=== PATIENT | female | born 1955 ===

== ENCOUNTER 2019-08-28 14:58 | Emergency (ER) | payer OTHER, MEDICARE ==
[2019-08-28] MEDS ORDERED: Sodium Chloride 0.9% 1,000 ML IV ONE (15:04)
[2019-08-28] MEDS ORDERED: Ondansetron 4 MG/2 ML SDV IVPUSH ONE (15:04)
[2019-08-28] MEDS ORDERED: Morphine 4 MG/ML Syringe IVPUSH ONE (15:04)
--- NOTE | 2019-08-28 15:10 | EDM.PDOC ---
ED HPI GENERAL MEDICAL PROBLEM - General Chief Complaint: Trauma Stated Complaint: AMB Time Seen by Provider: 08/28/19 14:59 Source of Information: Reports: Patient History Limitations: Reports: No Limitations - History of Present Illness INITIAL COMMENTS - FREE TEXT/NARRATIVE: HISTORY AND PHYSICAL: Trauma alert was called prior to [employer] due to patient taking aspirin daily and falling from a standing height. Dr. Birmingham was directly involved in this case History of present illness: Patient is a 63-year-old female who presents to the emergency room with complaints of right shoulder pain post fall. She was outside when she slipped on the ice and fell on her right side. She states the brunt of the fall was taken by her right shoulder and elbow. Right upper extremity is guarded in towards her body and she has pain with movement. Denies hitting her head or having any loss of consciousness. Review of systems: As per history of present illness and below otherwise all systems reviewed and negative. Past medical history: As per history of present illness and as reviewed below otherwise noncontributory. Surgical history: As per history of present illness and as reviewed below otherwise noncontributory. Social history: See social history for further information Family history: As per history of present illness and as reviewed below otherwise noncontributory. Physical exam: General: Well-developed and well-nourished 63-year-old female. Alert and oriented. Nontoxic appearing but in moderate distress due to the right upper extremity pain. Vital signs are stable and have been reviewed by me. HEENT: Nontender with palpation, normocephalic, pupils equal and reactive bilaterally, negative for conjunctival pallor or scleral icterus, mucous membranes moist, TMs normal bilaterally, throat clear, neck supple, nontender, trachea midline. No drooling or trismus noted. No meningeal signs. No hot potato voice noted. Lungs: Clear to auscultation, breath sounds equal bilaterally, chest nontender. Heart: S1S2, regular rate and rhythm without overt murmur Abdomen: Soft, nondistended, nontender. Negative for masses or hepatosplenomegaly. Negative for costovertebral tenderness. Pelvis: Stable nontender. C-spine/Back: No pinpoint vertebral tenderness upon palpation. No crepitus, step -offs or obvious deformities. Patient is ambulatory on scene without difficulty or deficit. Able to lift toes upward and push down with equal force bilaterally. Denies any urinary or fecal incontinence. Denies any numbness, tingling or saddle paresthesia. Skin: Intact, warm, dry. No lesions or rashes noted. Extremities: Limited range of motion due to pain in the right upper extremity, pain with palpation of right shoulder girdle and elbow, moves all other extremities per self without difficulty or deficits, negative for cords or calf pain. Cap refill less than 3 seconds. Strong radial pulse. Neurovascular unremarkable. Neuro: Awake, alert, oriented. Cranial nerves II through XII unremarkable. Cerebellum unremarkable. Motor and sensory unremarkable throughout. Exam nonfocal. Notes: X-ray shows an acute nondisplaced fracture of the proximal right humerus at the surgical neck. Appears mildly comminuted and impacted. It may involve the greater tubercle. No dislocation or AC separation. Two views of the right elbow. Question small avulsion type fracture of the lateral epicondyle. Clinically correlate for pain at this site. No evidence for joint effusion. Soft tissues appear within normal. All findings were shared with the patient. Encouraged her to call Thursday for follow-up. Referral was made here. We discussed pain management as she has multiple medication allergies to narcotics. She would like to use Ultram. Supportive care measures were reviewed and discussed. Voices understanding and is agreeable to plan of care. Denies any further questions or concerns at this time. Diagnostics: X-ray right shoulder, right elbow Therapeutics: IV fluid, morphine, Zofran, Benadryl, Fiberglass splint, Splint Prescription: Ultram Impression: Fall Right humerus fracture Possible avulsion fracture of right lateral epicondyle Plan: 1. Rest, ice, elevate the affected extremity. Please wear the splint and sling as directed. 2. Tylenol and/or Ibuprofen as needed for pain management. Ultram for moderate to severe pain. 3. Follow up with the Orthopedic provider as we discussed. Call Thursday morning for an appointment. Return to the ED as needed and as discussed. Definitive disposition and diagnosis as appropriate pending reevaluation and review of above. right shoulder Pain Score (Numeric/FACES): 8 - Related Data Allergies Allergy/AdvReac Type Severity Reaction Status Date / Time acetaminophen Allergy Rash Verified 08/28/19 15:37 [From Darvocet-N] cefaclor [From Ceclor] Allergy Rash Verified 08/28/19 15:37 morphine Allergy Rash Verified 08/28/19 15:37 Penicillins Allergy Rash Verified 08/28/19 15:37 propoxyphene Allergy Rash Verified 08/28/19 15:37 [From Gabe] Home Meds: Home Meds Aspirin 08/28/19 [History] Lisinopril 10 08/28/19 [History] Review of Systems - Review of Systems Review Of Systems: Comprehensive ROS is negative, except as noted in HPI. ED EXAM, GENERAL - Physical Exam Exam: See Below (See dictation) Course - Vital Signs Last Recorded V/S: Last Vital Signs Temp 98.3 F 08/28/19 15:08 Pulse 73 08/28/19 15:08 Resp 16 08/28/19 15:08 BP 156/76 H 08/28/19 15:08 Pulse Ox 97 08/28/19 15:08 - Orders/Labs/Meds Orders: Active Orders 24 hr Category Date Time Status Elbow Min 3V Rt [CR] Stat Exams 08/28/19 15:04 Taken Sodium Chloride 0.9% [Normal Saline] 1,000 ml Med 08/28/19 15:04 Active IV STAT Medication Orders Sodium Chloride (Normal Saline) 1,000 mls @ 125 mls/hr IV STAT ONE Stop: 08/28/19 23:03 Last Admin: 08/28/19 15:26 Dose: 125 mls/hr Meds: Medications Generic Name Dose Route Start Last Admin Trade Name Freq PRN Reason Stop Dose Admin Sodium Chloride 1,000 mls @ 125 mls/hr 08/28/19 15:04 08/28/19 15:26 Normal Saline IV 08/28/19 23:03 125 mls/hr STAT ONE Administration Discontinued Medications Generic Name Dose Route Start Last Admin Trade Name Freq PRN Reason Stop Dose Admin Diphenhydramine HCl 50 mg 08/28/19 15:35 08/28/19 15:41 Benadryl IVPUSH 08/28/19 15:36 50 mg ONETIME ONE Administration Diphenhydramine HCl 25 mg 08/28/19 15:35 08/28/19 15:41 Benadryl IVPUSH 08/28/19 15:36 Not Given ONETIME ONE Morphine Sulfate 4 mg 08/28/19 15:04 08/28/19 15:26 Morphine IVPUSH 08/28/19 15:05 4 mg ONETIME ONE Administration Ondansetron HCl 4 mg 08/28/19 15:04 08/28/19 15:26 Zofran IVPUSH 08/28/19 15:05 4 mg ONETIME ONE Administration Departure - Departure Time of Disposition: 16:15 Disposition: DC/Tfer to Hospice - Home 48 Clinical Impression: Fracture of humerus, proximal, right, closed Qualifiers: Encounter type: initial encounter Fracture morphology: unspecified fracture morphology Qualified Code(s): S42.201A - Unspecified fracture of upper end of right humerus, initial encounter for closed fracture Avulsion fracture of lateral epicondyle of humerus Qualifiers: Encounter type: initial encounter Fracture type: closed Fracture alignment: nondisplaced Laterality: right Qualified Code(s): S42.434A - Nondisplaced fracture (avulsion) of lateral epicondyle of right humerus, initial encounter for closed fracture Fall Qualifiers: Encounter type: initial encounter Qualified Code(s): W19.XXXA - Unspecified fall, initial encounter - Discharge Information Referrals: [facility] [Primary Care Provider] - Forms: ED Department Discharge Additional Instructions: The following information is given to patients seen in the emergency department who are being discharged to home. This information is to outline your options for follow-up care. We provide all patients seen in our emergency department with a follow-up referral. The need for follow-up, as well as the timing and circumstances, are variable depending upon the specifics of your emergency department visit. If you don't have a primary care physician on staff, we will provide you with a referral. We always advise you to contact your personal physician following an emergency department visit to inform them of the circumstance of the visit and for follow-up with them and/or the need for any referrals to a consulting specialist. The emergency department will also refer you to a specialist when appropriate. This referral assures that you have the opportunity for follow-up care with a specialist. All of these measure are taken in an effort to provide you with optimal care, which includes your follow-up. Under all circumstances we always encourage you to contact your private physician who remains a resource for coordinating your care. When calling for follow-up care, please make the office aware that this follow-up is from your recent emergency room visit. If for any reason you are refused follow-up, please contact the [facility] Emergency Department at and asked to speak to the emergency department charge nurse. [facility] - [facility] Professional [facility] [address] [place] [address], [address] [place] [address] Dr Rivera, Orthopedist [facility] [address] [place] [address] Orthopedics at [facility] [address] [place] [address] [facility] [address] [place] [address] 1. Rest, ice, elevate the affected extremity. Please wear the splint and sling as directed. 2. Tylenol and/or Ibuprofen as needed for pain management. Ultram for moderate to severe pain. 3. Follow up with the Orthopedic provider as we discussed. Call Thursday for an appointment. Return to the ED as needed and as discussed. - My Orders Last 24 Hours: My Active Orders 08/28/19 15:04 Elbow Min 3V Rt [CR] Stat Sodium Chloride 0.9% [Normal Saline] 1,000 ml IV STAT - Assessment/Plan Last 24 Hours: My Active Orders 08/28/19 15:04 Elbow Min 3V Rt [CR] Stat Sodium Chloride 0.9% [Normal Saline] 1,000 ml IV STAT
[2019-08-28] MEDS ORDERED: diphenhydrAMINE 50 MG/ML SDV IVPUSH ONE ×2 (15:35)
--- NOTE | 2019-08-28 15:41 | CR ---
INDICATION: Fall. TECHNIQUE: Two views right shoulder COMPARISON: None FINDINGS AND IMPRESSION: There is an acute nondisplaced fracture of the proximal right humerus at the surgical neck. This appears mildly comminuted and impacted. It may involve the greater tubercle. There is no dislocation. No AC separation. No suspicious bone lesion. Sequelae of lower cervical fusion noted. Dictated by Donta Bower MD @ Aug 28 2019 3:35PM Signed by Dr. Donta Bower @ Aug 28 2019 3:39PM
--- NOTE | 2019-08-28 16:07 | CR ---
HISTORY: Fall. COMPARISON: None. FINDINGS: Two views of the right elbow. Question small avulsion type fracture of the lateral epicondyle. Clinically correlate for pain at this site. No evidence for joint effusion. Soft tissues appear within normal. Dictated by Magy Mcclendon MD @ Aug 28 2019 4:03PM Signed by Dr. Magy Mcclendon @ Aug 28 2019 4:07PM
[2019-08-28] MEDS ORDERED: Acetaminophen 500 MG Tab PO ONE (16:36)
== END 2019-08-28 16:52 | disposition home or self-care (01) ==
LOC: MW.ED 14:58
DX: S42.434A Nondisplaced fracture (avulsion) of lateral epicondyle of right humerus, initial encounter for closed fracture (principal); S42.214A Unspecified nondisplaced fracture of surgical neck of right humerus, initial encounter for closed fracture; Z88.0 Allergy status to penicillin; Z88.5 Allergy status to narcotic agent; Z88.8 Allergy status to other drugs, medicaments and biological substances; Z79.82 Long term (current) use of aspirin; W00.0XXA Fall on same level due to ice and snow, initial encounter
CPT/HCPCS: 73030; 73080; 96361; 96374; 96375; 99283; A9270; J1200; J2270; J2405; J7040; J7030